=== PATIENT | female | born 1950 ===

== ENCOUNTER 2017-11-26 09:10 | Emergency (ER) | payer MEDICARE ==
[2017-11-26] MEDS ORDERED: Tdap Vaccine 0.5 ml Vial (10-64 yrs) IM ONE ×2 (10:35→10:45)
[2017-11-26] MEDS ORDERED: Lidocaine 1% Inj (20ml) INFIL ONE (10:36)
[2017-11-26] MEDS ORDERED: Lidocaine Hydrochloride 10 ML INJ ONE (10:45)
[2017-11-26 11:25] VITALS: RESP 18; TEMP 98; O2SAT 98
[2017-11-26] MEDS ORDERED: ceFAZolin 1 gm in NS 1 GM/100 ML BAG IVPB ONE (12:10)
--- NOTE | 2017-11-26 13:39 | C.PDOC ---
Addendum entered and electronically signed by Nelly Hair PA 12/08/17 18:20: Orthopedic Care Application Of:: Finger Splint (right pinky) Original Note: History Of Present Illness 67 year old female patient with hx of DM presents to the ER with c/o right pinky injury. Patient reports she caught her right pinky on a door [employer]. Tetanus shot unknown. Patient denies numbness, tingling or weakness. Time Seen by Provider: 11/26/17 09:27 Chief Complaint (Nursing): Finger,Hand,&Wrist History Per: Patient History/Exam Limitations: no limitations Onset/Duration Of Symptoms: Mins Current Symptoms Are (Timing): Still Present Past Medical History Reviewed: Historical Data, Nursing Documentation, Vital Signs Vital Signs: Last Vital Signs Temp 98 F 11/26/17 11:24 Pulse 89 11/26/17 11:24 Resp 18 11/26/17 11:24 BP 186/73 H 11/26/17 11:24 Pulse Ox 98 11/26/17 11:24 - Medical History PMH: HTN Family History: States: No Known Family Hx - Social History Hx Alcohol Use: No Hx Substance Use: No Review Of Systems Musculoskeletal: Positive for: Other (right pinky injury ) Neurological: Negative for: Weakness, Numbness, Other (tingling) Physical Exam - Physical Exam Appears: Well, Non-toxic, No Acute Distress Skin: Normal Color, Warm, Dry Extremity: Normal ROM, Tenderness, Capillary Refill (<2 sec), Other (active bleeding on distal tip of right pinky finger; avulsed flesh; partial nail intact with puncture wound. ) Pulses: Left Radial: Normal, Right Radial: Normal ED Course And Treatment O2 Sat by Pulse Oximetry: 98 (RA) Pulse Ox Interpretation: Normal Medical Decision Making Medical Decision Making: Impression: right pink finger injury Plans: -- tetanus shot -- Ancef -- lidocaine -- toradol -- XR right hand pt with right pinky slammed in door. tuft fx noted on xray. iv antibiotics given. discussed with nelson Deleon with jonas f/u in his office on tuesday, antibiotics. Disposition Counseled Patient/Family Regarding: Studies Performed, Diagnosis, Need For Followup, Rx Given - Disposition Referrals: Ken Eric MD [Staff Provider] - Disposition: HOME/ ROUTINE Disposition Time: 13:36 Condition: GOOD Additional Instructions: Por favor mantenga la herida cubierta, limpia y seca. Llame a la oficina del Dr. Eric el brayan para milady simba. Si no desea ir a [place], llame al servicio de atencin al cliente que figura en cassidy tarjeta de seguro o al servicio de conserjera para que lo ayuden a encontrar un cirujano ms cercano para realizar un seguimiento. Zhou los antobiticos casa prescritos. Motrin para el dolor. Tylenol con codena solo para el dolor jim. Mantenga la mano elevada cuando sea posible. Please keep wound covered, clean and dry. Call Dr Eric's office on Tuesday for an appointment. If you don't want to go to [place], call customer service on your insurance card or jackspooler service to help you find a closer hand surgeon for follow up. Take antobiotics as prescrbied. Motrin for painl. Tylenol with codeine for severe pain only. Keep hand elevate when possible. 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 - Scribe Statement The provider has reviewed the documentation as recorded by the Abad Butler Do
[2017-11-26 13:46] VITALS: BP 136/72; PULSE 78
--- NOTE | 2017-11-26 15:10 | RAD ---
Right hand 5th digit three views HISTORY: Injury. COMPARISON: None available. FINDINGS: Prominent overlying bandage and soft tissue swelling at the level of the 5th digit with soft tissue defect extending to the level of the distal tuft of the 5th distal phalanx. Cortical irregularity at the level of the distal tuft of the 5th distal phalanx concerning for fracture/crush injury. Narrowing of the 2nd through 5th PIP and DIP joint spaces. IMPRESSION: Prominent overlying bandage and soft tissue swelling at the level of the 5th digit with soft tissue defect extending to the level of the distal tuft of the 5th distal phalanx. Cortical irregularity at the level of the distal tuft of the 5th distal phalanx concerning for fracture/crush injury. Narrowing of the 2nd through 5th PIP and DIP joint spaces.
== END 2017-11-26 13:50 | disposition home or self-care (01) ==
LOC: C.ER 09:10
DX: S62.636B Displaced fracture of distal phalanx of right little finger, initial encounter for open fracture (principal); W23.0XXA Caught, crushed, jammed, or pinched between moving objects, initial encounter
CPT/HCPCS: 29130; 73140; 90471; 90715; 96372; 96374; 99285; J0690; J1885